=== PATIENT | male | born 1985 | race Caucasian/White ===

== ENCOUNTER 2022-05-06 13:16 | Emergency (ER) | payer MEDICAID ==
[~2022-05-06] VITALS: Ht 177.8 cm; Wt 84.1 kg
[2022-05-06 13:43] VITALS: BP 112/77
[2022-05-06] MEDS ORDERED: buprenorphine/naloxone 8MG-2MG SUBlingual film SL ONE ×2 (18:15→19:40)
== END 2022-05-06 20:07 | disposition home or self-care (01) ==
LOC: ER 13:17
DX: F11.23 Opioid dependence with withdrawal (principal); R25.1 Tremor, unspecified; Z72.89 Other problems related to lifestyle; Z59.00 Homelessness unspecified
CPT/HCPCS: 99283